=== PATIENT | male | born 1965 ===

== ENCOUNTER 2017-05-06 10:40 | Day surgery (SDC) | payer BC ==
[2017-04-27 09:57] VITALS: BMI 37.5
[2017-05-06] MEDS ORDERED: Propofol 10 mg/ml Inj (20 ML) ONE (12:33)
[2017-05-06] MEDS ORDERED: Sodium Chloride 0.9% 1,000 ML IV SCH (13:00)
[2017-05-06 13:10] VITALS: RESP 16
[2017-05-06 13:26] VITALS: PULSE 70
[2017-05-06 13:40] VITALS: BP 122/80; TEMP 98.8; O2SAT 98
== END 2017-05-06 14:02 | disposition home or self-care (01) ==
LOC: ENDO 10:40
PROVIDERS: ATTEND Internal Medicine
DX: K22.70 Barrett's esophagus without dysplasia (principal); K44.9 Diaphragmatic hernia without obstruction or gangrene; K29.50 Unspecified chronic gastritis without bleeding; Z83.3 Family history of diabetes mellitus; Z80.9 Family history of malignant neoplasm, unspecified; Z80.6 Family history of leukemia
CPT/HCPCS: 43239; 88305; 88312; 88342; J2704; J7040 ×2